=== PATIENT | male | born 1975 | race Hispanic/Latino ===

== ENCOUNTER 2019-02-05 10:20 | Emergency (ER) | payer BC ==
[2019-02-05 10:27] VITALS: BMI 25.1
[2019-02-05 10:29] VITALS: O2SAT 100
--- NOTE | 2019-02-05 11:24 | ED PDOC ---
Upper Extremity Pain/Injury Time Seen by Provider: 02/05/19 10:45 Chief Complaint (Nursing): Upper Extremity Problem/Injury Chief Complaint (Provider): RIGHT WRIST PAIN AND SWELLING History Per: Patient History/Exam Limitations: no limitations Onset/Duration Of Symptoms: Days Current Symptoms Are (Timing): Still Present Quality: Aching Severity: Moderate Pain Scale Rating Of: 6 Exacerbating Factor(s): Movement Additional History Per: Patient Additional Complaint(s): 43 Y/O MALE WITH NO SIGNIFICANT MEDICAL HX PRESENTS WITH RIGHT WRIST PAIN SINCE YESTERDAY. PT REPORTS WRIST "SORENESS" YESTERDAY FOR WHICH HE TOOK ADVIL WITH SOME RELIEF. UPON RISING THIS AM, WRIST PAIN WAS WORSE WITH SWELLING WHICH PROMPTED ED VISIT. PT DENIES INJURY HOWEVER HE REGULARLY DOES [employer], LAST CLASS WAS ON THURSDAY. DENIES, FEVER, CHILLS, BODYACHES AND REDNESS TO JOINT. Past Medical History Reviewed: Historical Data, Nursing Documentation, Vital Signs Vital Signs: Last Vital Signs Temp 98.4 F 02/05/19 10:28 Pulse 56 L 02/05/19 10:28 Resp 17 02/05/19 10:28 BP 145/85 02/05/19 10:28 Pulse Ox 100 02/05/19 10:28 - Medical History PMH: No Chronic Diseases - Surgical History Surgical History: Appendectomy - Family History Family History: States: Unknown Family Hx - Social History Alcohol: None Drugs: Denies - Immunization History Hx Tetanus Toxoid Vaccination: Yes Hx Influenza Vaccination: No Hx Pneumococcal Vaccination: No - Home Medications Home Medications: Ambulatory Orders Medication Instructions Recorded Ibuprofen [Motrin Tab] 800 mg PO Q6H PRN #30 tab 02/05/19 Tramadol HCl [Ultram] 50 mg PO Q6H PRN #8 tablet 02/05/19 - Allergies Allergies/Adverse Reactions: Allergies Allergy/AdvReac Type Severity Reaction Status Date / Time Iodinated Contrast- Oral and Allergy URTICARIA Verified 02/05/19 10:44 IV Dye Review of Systems ROS Statement: Except As Marked, All Systems Reviewed And Found Negative Constitutional: Negative for: Fever, Chills, Sweats, Weakness, Malaise Eyes: Negative for: Pain, Vision Change, Conjunctivae Inflammation, Eyelid Inflammation, Redness ENT: Negative for: Ear Pain, Mouth Swelling, Throat Swelling Cardiovascular: Negative for: Chest Pain, Palpitations Respiratory: Negative for: Cough, Shortness of Breath Gastrointestinal: Negative for: Nausea, Vomiting, Abdominal Pain, Constipation Genitourinary Male: Negative for: Dysuria Musculoskeletal: Positive for: Other (WRIST PAIN AND SWELLING ) Neurological: Negative for: Weakness Physical Exam - Reviewed Nursing Documentation Reviewed: Yes Vital Signs Reviewed: Yes - Physical Exam Appears: Positive for: Well, Non-toxic, No Acute Distress Head Exam: Positive for: ATRAUMATIC, NORMAL INSPECTION, NORMOCEPHALIC Skin: Positive for: Normal Color, Warm, Dry Eye Exam: Positive for: EOMI, Normal appearance, PERRL ENT: Positive for: Normal ENT Inspection Neck: Positive for: Normal, Painless ROM Cardiovascular/Chest: Positive for: Regular Rate, Rhythm Respiratory: Positive for: CNT, Normal Breath Sounds Pulses-Radial (L): 2+ Pulses-Radial (R): 2+ Gastrointestinal/Abdominal: Positive for: Normal Exam, Soft Back: Positive for: Normal Inspection Extremity: Positive for: Tenderness (RIGHT WRIST TENDERNESS OVER ULNAR HEAD, POS FOR JOINT SWELLING, LIMITED ROM DUE TO PAIN, PAIN WORSE WITH FLEXTION, SKIN IS INTACT, WARM AND COLOR WNL ), Capillary Refill, Swelling. Negative for: Deformity (WRIST) Neurological/Psych: Positive for: Awake, Alert, Normal Tone, Oriented - Laboratory Results Result Diagrams: 02/05/19 13:40 02/05/19 13:40 - ECG O2 Sat by Pulse Oximetry: 100 - Progress ED Course And Treament: RIGHT WROST XRAY MOTRIN CBC BMP ESR MRI OF WRIST W/O CONTRAST 12:25 PT RE-EVALUATED AT THIS TIME, NO ACUTE FX ON XRAY.CASE DISCUSSED WITH DR. BLANCO, ATTENDING EXAMINED PT AT BEDSIDE. FURTHER WOR-UP NEEDED. 1500: MRI RESULTS AND LABS REVIEWED WITH DR. BLANCO. RADIOLOGIST READ, IMPRESSION: PT HAS SCAPHOLUNATE LIGAMENT TEAR AND JOINT EFFUSIONS OF THE WRIST. PT PLACED IN VOLAR SPLINT BY PCT, NUERO/VASCU EXAM PERFORMED BY ME POST SPLINTING (INTACT). PT GIVEN REFERRAL TO [facility] FOR FOLLOW UP IN 1-2 WEEKS. RX GIVEN FOR MOTRIN 800MG PO Q6H HRS FOR PAIN AND TRAMADOL 50 MG PO FOR BREAKTHROUGH PAIN. TP VERBALIZES UNDERSTANDING, PT GIVEN RETURN TO ED PRECAUTIONS. Re-evaluation Time: 15:00 Condition: Re-examined Disposition - Clinical Impression Clinical Impression: Wrist joint pain, Right scapholunate ligament tear - Patient ED Disposition Is Patient to be Admitted: No Counseled Patient/Family Regarding: Diagnosis, Need For Followup, Rx Given - Disposition Referrals: Naveed De Paz MD [Medical Doctor] - Morgan Blanco III, MD [Staff Provider] - Disposition Time: 15:00 Condition: IMPROVED Additional Instructions: FOLLOW-UP WITH ORTHO IN 1-2 WEEKS Prescriptions: Ibuprofen [Motrin Tab] 800 mg PO Q6H PRN #30 tab PRN Reason: Pain, Moderate (4-7) Tramadol HCl [Ultram] 50 mg PO Q6H PRN #8 tablet PRN Reason: Pain, Severe (8-10) Instructions: Joint Pain Print Language: EGYPTIAN - POA Present On Arrival: None
[2019-02-05 13:50] LABS: BASO % 0.6 % (0.0-2.0); EOS % 0.2 % (0.0-4.0); HEMOGLOBIN 13.2 g/dL (12.0-18.0); LYMPH # 1.3 K/uL (1.0-4.3); LYMPH % 17.2 % (20.0-40.0); MEAN CELL VOLUME 88.9 fl (80.0-94.0); MEAN CORPUSCULAR HEMOGLOBIN 30.4 pg (27.0-31.0); MEAN CORPUSCULAR HGB CONC 34.2 g/dL (33.0-37.0); MEAN PLATELET VOLUME 8.6 fl (7.2-11.7); MONO # 0.8 K/uL (0.0-0.8); MONO % 10.4 % (0.0-10.0); NEUT # 5.4 K/uL (1.8-7.0); NEUT % 71.6 % (50.0-75.0); RBC 4.36 Mil/uL (4.40-5.90); RED CELL DISTRIBUTION WIDTH 14.2 % (11.5-14.5); WHITE BLOOD COUNT 7.5 K/uL (4.8-10.8)
[2019-02-05 13:59] LABS: BLOOD UREA NITROGEN 18 mg/dl (9-20); CALCIUM 8.9 mg/dL (8.4-10.2); GFR NON-AFRICAN AMERICAN > 60
--- NOTE | 2019-02-05 13:59 | RAD ---
Date of service: 02/05/2019 PROCEDURE: Right Wrist Radiographs. HISTORY: PAIN/SWELLING COMPARISON: None. TECHNIQUE: 4 views obtained. FINDINGS: BONES: Normal. No fracture. JOINTS: Normal. No dislocation. SOFT TISSUES: Normal. OTHER FINDINGS: None. IMPRESSION: No evidence of acute displaced fracture nor dislocation. If symptoms persist or occult fracture suspected clinically recommend repeat radiographs in 7-10 days as most fractures should become radiographically evident in this timeframe.
[2019-02-05 14:57] VITALS: BP 128/75; PULSE 72; RESP 16; TEMP 97.5
--- NOTE | 2019-02-07 12:53 | MRI ---
MRI right wrist pain and swelling. COMPARISON: None available. Technique: Multi-echo multiplanar sequences were performed through the right wrist without the use of intravenous contrast. Findings: Large amount of fluid seen within the radiocarpal, pisotriquetral, and radial ulnar joint spaces. This is of uncertain clinical etiology and may be the sequelae of posttraumatic change versus acute inflammatory and or infectious changes and or additional etiology. Clinical correlation. Fraying with increased signal seen within the midsubstance of the scapholunate lunate ligament suggestive for partial tearing. Lunatotriquetral ligament appears preserved. Fraying with increased signal seen within the ulnar attachment of the triangular fibrocartilage suggestive for partial tearing. 3.8 millimeter subchondral cyst formation seen within the proximal pole of the capitate bone as well as additional 4.8 millimeter subchondral cyst formation and or intraosseous ganglia formation seen at the ulnar aspect of the distal radius. Some patchy decreased T1 signal with increased STIR signal seen within the dorsal aspects of the proximal pole of the scaphoid as well as the radial aspect of the lunate bone which may represent bone bruising versus subchondral osseous injury versus sequelae of osteochondral change versus additional etiology. Degenerative changes noted at the 1st carpometacarpal joint space. In addition, globular signal abnormality seen at the base of the 1st metacarpal bone at its radial aspect measuring 5 millimeters demonstrating patchy decreased T1 signal and increased STIR signal suggestive for possible subchondral cyst formation with osteochondral change versus bone bruising versus subchondral osseous injury versus additional etiology. Clinical correlation. Visualized extensor tendons are preserved. Mild bowing of the flexor retinaculum at the level of the carpal tunnel suggestive for a mild carpal tunnel syndrome. Impression: 1. Large amount of fluid seen within the radiocarpal, pisotriquetral, and radial ulnar joint spaces. This is of uncertain clinical etiology and may be the sequelae of posttraumatic change versus acute inflammatory and or infectious changes and or additional etiology. Clinical correlation. 2. Fraying with increased signal seen within the midsubstance of the scapholunate lunate ligament suggestive for partial tearing. 3. Fraying with increased signal seen within the ulnar attachment of the triangular fibrocartilage suggestive for partial tearing. 4. 3.8 millimeter subchondral cyst formation seen within the proximal pole of the capitate bone as well as additional 4.8 millimeter subchondral cyst formation and or intraosseous ganglia formation seen at the ulnar aspect of the distal radius. 5. Some patchy decreased T1 signal with increased STIR signal seen within the dorsal aspects of the proximal pole of the scaphoid as well as the radial aspect of the lunate bone which may represent bone bruising versus subchondral osseous injury versus sequelae of osteochondral change versus additional etiology. 6. Degenerative changes noted at the 1st carpometacarpal joint space. In addition, globular signal abnormality seen at the base of the 1st metacarpal bone at its radial aspect measuring 5 millimeters demonstrating patchy decreased T1 signal and increased STIR signal suggestive for possible subchondral cyst formation with osteochondral change versus bone bruising versus subchondral osseous injury versus additional etiology. Clinical correlation. 7. Mild bowing of the flexor retinaculum at the level of the carpal tunnel suggestive for a mild carpal tunnel syndrome. A preliminary report was generated at 1:44 p.m. on 02/05/[address] Wolf Olivo from [facility]. This case was placed in the PA review folder.
== END 2019-02-05 15:05 | disposition home or self-care (01) ==
LOC: H.ER 10:20
DX: M25.531 Pain in right wrist (principal); G56.00 Carpal tunnel syndrome, unspecified upper limb; Z88.8 Allergy status to other drugs, medicaments and biological substances